=== PATIENT | female | born 1960 | race Caucasian/White ===

== ENCOUNTER → 2021-10-16 | Outpatient (CLI) | payer SELFPAY ==
[~2021-10-16] MED LIST: CALC-9; FLUO10CA19; FLUO20CA42 PO; LYSI500T13
--- NOTE | 2021-10-16 11:47 | Diagnostic Imaging Report ---
Indication: Family history of coronary artery disease CT cardiac calcium score performed with noncontrast images of the heart followed by calculation of cardiac score. Raw data images demonstrate normal caliber of the aorta with no evidence of adenopathy in the mediastinum or silke. Visualized portions of the lung camacho show no nodules or infiltrates, the entirety lungs are not included on the study. There are no significant coronary artery calcifications detected. CT coronary calcium score was 0. IMPRESSION: Cardiac calcium score was 0, no significant coronary calcifications. Dictated by: Dictated on workstation # [id number]
== END ==
LOC: RAD FS 09:28
PROVIDERS: ATTEND Family Medicine
DX: Z82.49 Family history of ischemic heart disease and other diseases of the circulatory system (principal)
CPT/HCPCS: 75571